=== PATIENT | female | born 1985 | race Hispanic/Latino ===

== ENCOUNTER 2022-04-27 17:11 | Emergency (ER) | payer OTHER ==
[~2022-04-27] VITALS: Ht 160 cm; Wt 52.6 kg
[2022-04-27] MEDS ORDERED: METHADOSE40 MG PO (17:27)
[2022-04-27] MEDS ORDERED: RELISTOR150 MG PO (18:13)
== END 2022-04-27 18:30 | disposition home or self-care (01) ==
LOC: ED 17:11
DX: T40.3X1A Poisoning by methadone, accidental (unintentional), initial encounter (principal); K59.03 Drug induced constipation; Z88.8 Allergy status to other drugs, medicaments and biological substances
CPT/HCPCS: 96372; 99283; J2212